=== PATIENT | female | born 1985 | race African-American/Black ===

== ENCOUNTER 2018-06-25 21:55 | Inpatient (IN) ==
[2018-06-25] MEDS ORDERED: BUTORPHANOL 2 MG/ML VIAL IV PRN (22:15)
[2018-06-25] MEDS ORDERED: ONDANSETRON 4 MG/2 ML VIAL IV PRN (22:15)
[2018-06-25] MEDS: LACTATED RINGERS 1,000 ML IV SCH (22:30)
[2018-06-25 22:39] LABS: Basophils # 0.1 10*3/uL (0.0-0.2); Basophils % 0.4 % (0.0-0.8); Eosinophils # 0.1 10*3/uL (0.0-0.87); Hematocrit 29.1 VOL% (35.7-47.0); Hemoglobin 9.2 GM/DL (12.0-16.0); Immature Granulocytes % 1.2 %; Immature Granulocytes Absolute 0.16 #; Lymphocytes # 3.3 10*3/uL (1.4-4.0); Lymphocytes % 24.8 % (21.3-54.2); Mean Corpuscular HGB Conc 31.6 GM/DL (32-36); Mean Corpuscular Hemoglobin 26 PG (27-34); Mean Corpuscular Volume 81.1 FL (87-102); Monocytes # 1.1 10*3/uL (0.11-0.8); Monocytes % 8.4 % (1.7-12.7); Neutrophils # 8.4 10*3/uL (1.4-7.4); Neutrophils % 64.2 % (38.7-73.9); Platelet Count 281 T/CUMM (130-400); Red Blood Count 3.59 MC/CUMM (3.8-5.5); Red Cell Distribution Width 15.7 % (9.3-17.3); White Blood Count 13.1 T/CUMM (4-12)
[2018-06-25 22:43] LABS: Apearance,Urine CLEAR (Clear); Bilirubin,Urine Negative (Negative); Blood, Urine Negative (Negative); Glucose,Urine (UA) Negative (Negative); Ketones,Urine Negative (Negative); Nitrite,Urine Negative (Negative); Protein,Urine Negative; RBC,Urine <1 /HPF (0-4); Squamous Epithelial Cell,Urine Occasional /HPF (0-10); Urine Color Straw (Yellow); Urine Specific Gravity 1.006 (1.001-1.035); Urine Urobilinogen < 2.0 EU/DL (0.2-1.0); WBC,Urine <1 /HPF (0-6)
[2018-06-25] MEDS ORDERED: PENICILLIN G POTASSIUM INJ 6,000,000 UNIT in SODIUM CHLORIDE 0.9% 100 ML IV ONE (23:00)
[2018-06-26] MEDS ORDERED: NALOXONE 0.4 MG/ML VIAL IV PRN (03:14)
[2018-06-26] MEDS ORDERED: PROMETHAZINE 25 MG/1 ML VIAL IM ONE (03:14)
[2018-06-26] MEDS ORDERED: CITRIC ACID/SODIUM CITRATE 30 ML UDCUP PO ONE (03:14)
[2018-06-26] MEDS ORDERED: hydrOXYzine HCL 25 MG/1 ML VIAL IM PRN (03:14)
[2018-06-26] MEDS ORDERED: ePHEDrine 50 MG/ML AMP IV PRN (03:14)
[2018-06-26] MEDS ORDERED: FAMOTIDINE 20 MG/2 ML VIAL IV ONE (03:14)
[2018-06-26] MEDS ORDERED: diphenhydrAMINE 50 MG/1 ML VIAL IV PRN (03:14)
[2018-06-26] MEDS ORDERED: fentaNYL 2 MCG/ROPIV 0.2% EPID 100 ML EPIDURAL SCH (03:30)
[2018-06-26] MEDS: LACTATED RINGERS 1,000 ML IV SCH (03:30)
[2018-06-26] MEDS ORDERED: PENICILLIN G POTASSIUM INJ 3,000,000 UNIT in SODIUM CHLORIDE 0.9% 100 ML IV SCH (05:00)
[2018-06-26] MEDS: OXYTOCIN/LR 20 UNIT/1,000 ML BAG IV SCH ×2 (05:52→08:22)
[2018-06-26] MEDS ORDERED: METHYLERGONOVINE 0.2 MG/1 ML AMP ONE (07:59)
[2018-06-26] MEDS ORDERED: miSOPROStol 200 MCG TABLET ONE (07:59)
[2018-06-26] MEDS ORDERED: CARBOPROST TROMETHAMINE 250 MCG/ML AMP IM ONE (08:00)
[2018-06-26] MEDS ORDERED: LIDOCAINE 1% 50 ML VIAL ONE (08:01)
[2018-06-26 08:37] LABS: Cord Arterial Blood HCO3 21.1 MMOL/L
[2018-06-26 08:38] LABS: Cord Venous Blood HCO3 23.3 MMOL/L; Cord Venous Blood PCO2 41.1 MMHG; Cord Venous Blood PO2 26.4 MMHG
[2018-06-26 09:13] LABS: Apearance,Urine CLEAR (Clear); Bilirubin,Urine Negative (Negative); Blood, Urine Negative (Negative); Glucose,Urine (UA) Negative (Negative); Ketones,Urine Negative (Negative); Mucus,Urine Occasional /LPF (Occasional); Nitrite,Urine Negative (Negative); Protein,Urine Negative; RBC,Urine 1 /HPF (0-4); Urine Color Straw (Yellow); Urine Specific Gravity 1.009 (1.001-1.035); Urine Urobilinogen < 2.0 EU/DL (0.2-1.0)
[2018-06-26] MEDS ORDERED: BISACODYL 10 MG SUPP RECTAL PRN (11:11)
[2018-06-26] MEDS ORDERED: ACETAMINOPHEN 325 MG TABLET PO SCH (11:11)
[2018-06-26] MEDS ORDERED: MEASLES/MUMPS/RUBELLA VACCINE 0.5 ML VIAL SUBCUT ONE (11:11)
[2018-06-26] MEDS ORDERED: WITCH HAZEL PADS 100/JAR TOP PRN (11:11)
[2018-06-26] MEDS ORDERED: BENZOCAINE 20%/MENTHOL 0.5% SPRAY 56 GM CAN TOP PRN (11:11)
[2018-06-26] MEDS ORDERED: RHO(D) IMMUNE GLOBULIN 300 MCG SYRINGE IM ONE (11:11)
[2018-06-26] MEDS ORDERED: DIPH/TET/ACEL PERT BOOSTER VACCINE 0.5 ML VIAL IM ONE (11:11)
[2018-06-26] MEDS ORDERED: LANOLIN 50% CREAM 0.3 OZ TUBE TOP PRN (11:11)
[2018-06-26] MEDS ORDERED: HYDROCORTISONE 2.5% RECTAL CREAM 30 GM TUBE TOP PRN (11:11)
[2018-06-26] MEDS: IBUPROFEN 800 MG TABLET PO SCH ×2 (12:00→20:17)
[2018-06-26] MEDS ORDERED: OXYTOCIN/LR 20 UNIT/1,000 ML BAG IV ONE (18:06)
[2018-06-26] MEDS: DOCUSATE SODIUM 100 MG CAPSULE PO SCH (20:17)
[2018-06-26] MEDS: ACETAMINOPHEN 500 MG TABLET PO SCH (21:04)
[2018-06-27] MEDS: ACETAMINOPHEN 500 MG TABLET PO SCH ×5 (02:55→22:02)
[2018-06-27] MEDS: IBUPROFEN 800 MG TABLET PO SCH ×3 (04:46→21:10)
[2018-06-27 05:39] LABS: Basophils % 0.3 % (0.0-0.8); Eosinophils # 0.2 10*3/uL (0.0-0.87); Eosinophils % 1.7 % (0.00-10.9); Hematocrit 26.5 VOL% (35.7-47.0); Hemoglobin 8.3 GM/DL (12.0-16.0); Immature Granulocytes % 1.3 %; Immature Granulocytes Absolute 0.18 #; Lymphocytes # 2.7 10*3/uL (1.4-4.0); Lymphocytes % 19.7 % (21.3-54.2); Mean Corpuscular HGB Conc 31.3 GM/DL (32-36); Mean Corpuscular Hemoglobin 26 PG (27-34); Monocytes # 0.8 10*3/uL (0.11-0.8); Monocytes % 5.9 % (1.7-12.7); Neutrophils # 9.8 10*3/uL (1.4-7.4); Neutrophils % 71.1 % (38.7-73.9); Platelet Count 234 T/CUMM (130-400); Red Blood Count 3.23 MC/CUMM (3.8-5.5); Red Cell Distribution Width 15.5 % (9.3-17.3); White Blood Count 13.8 T/CUMM (4-12)
[2018-06-27] MEDS: DOCUSATE SODIUM 100 MG CAPSULE PO SCH ×3 (09:44→20:32)
[2018-06-28] MEDS: ACETAMINOPHEN 500 MG TABLET PO SCH (03:55)
[2018-06-28] MEDS: IBUPROFEN 800 MG TABLET PO SCH (05:57)
[2018-06-28 07:44] VITALS: BP 110/53
[2018-06-28] MEDS: DOCUSATE SODIUM 100 MG CAPSULE PO SCH (08:44)
== END 2018-06-28 13:00 | disposition home or self-care (01) | DRG 807 ==
LOC: N.LDOUT 21:55 → N.LD 21:57 → N.OB 06-26 11:05
PROVIDERS: ADMIT Obstetrics & Gynecology; ATTEND Obstetrics & Gynecology